=== PATIENT | male | born 1945 | race Caucasian/White ===

== ENCOUNTER → 2017-07-17 12:03 | Outpatient (CLI) | payer BC ==
[2017-07-17 12:33] LABS: BASOPHILS 0.2 % (0-2); EOSINOPHILS 1.6 % (0-7); HEMATOCRIT 35.2 % (42.0-54.0); HEMOGLOBIN 12.3 g/dL (13.5-17.5); IMMATURE GRANULOCYTES 0.9 % (0-5); LYMPHOCYTES 9.6 % (15-50); MCH 33.2 pg (26.0-34.0); MCHC 34.9 g/dL (31.0-37.0); MCV 95.1 fL (80.0-100.0); MEAN PLATELET VOLUME 10.1 fL (7.4-10.4); NEUTROPHILS 76.7 % (40-80); PLATELET COUNT 238 10x3/uL (130-400); RDW 13.9 % (11.5-14.5)
[2017-07-17 12:46] LABS: ALBUMIN 3.3 g/dL (3.4-5.0); ANION GAP 12.3 mmol/L (8-16); BILIRUBIN - TOTAL 1.42 mg/dL (0.2-1.3); CALCIUM 8.9 mg/dL (8.5-10.1); CARBON DIOXIDE 26.6 mmol/L (21.0-32.0); CREATININE - SERUM 1.2 mg/dL (0.6-1.3); POTASSIUM - SERUM 3.9 mmol/L (3.5-5.1); PROTEIN - SERUM 6.7 g/dL (6.4-8.2)
== END | disposition home or self-care (01) ==
LOC: D.LAB 12:03
PROVIDERS: Urology
DX: R33.9 Retention of urine, unspecified (principal)